=== PATIENT | female | born 1950 | race Asian ===

== ENCOUNTER 2017-02-11 11:55 | Day surgery (SDC) | payer OTHER ==
[~2017-02-11] VITALS: Ht 162.6 cm; Wt 58.2 kg
[2017-02-11 12:57] VITALS: Ht 162.6 cm; Wt 58.2 kg
[2017-02-11] MEDS ORDERED: LORA10TA3 PO (13:07)
[2017-02-11] MEDS ORDERED: ALEN10TA18 PO (13:07)
[2017-02-11] MEDS ORDERED: ALEN70TA30 PO (13:07)
[2017-02-11] MEDS ORDERED: ACYC400T2 PO (13:07)
[2017-02-11] MEDS ORDERED: TR1B60 TOP (13:07)
[2017-02-11] MEDS ORDERED: CLOT15CR55 TOP (13:07)
[2017-02-11 13:09] VITALS: BP 106/56; PULSE 74; RESP 15
[2017-02-11] MEDS ORDERED: PROPOFOL 60 ML ONE (13:24)
[2017-02-11] MEDS ORDERED: LIDOCAINE 2% (SDV) 5 ML INJ ONE (13:25)
--- NOTE | 2017-02-13 07:30 | GILP ---
DATE OF PROCEDURE: 02/11/2017 PROCEDURE: Colonoscopy to cecum. BRIEF HISTORY AND INDICATIONS: This patient is being evaluated for colorectal cancer screening. PREMEDICATION: Monitored anesthesia care by anesthesiologist. SURGEON: Addison Leonard MD INSTRUMENT USED: Olympus colonoscope. PREPARATION: Adequate. TECHNIQUE: After informed consent, with the patient/relatives understanding the procedure, its indic ations potential risks and complications, including but not limited to: allergic reaction, bleeding, perforation, infection, missed lesions and after all pertinent questions were answered to the patie nt's satisfaction, the patient/relatives signed the witnessed informed consent. Following this, premedication was administered slowly IV push by under careful cardiovascular and re spiratory monitoring with pulse oximetry, automatic blood pressure and lunchroom monitor. Once the sedativ e effect was achieved, the patient was placed in the left lateral decubitus position, digital rectal examination was performed. The colonoscope was then introduced and advanced under visual control th roughout all segments of the colon including: the rectum, sigmoid, descending colon, splenic flexure , transverse colon, hepatic flexure, ascending colon and finally reaching the cecum which was clearl y identified by transillumination, finger indentation and the ileocecal valve. Careful examination o f the mucosa of the lower gastrointestinal tract both on insertion as well as withdrawal of the inst rument disclosed the following findings: Rectal Examination: No evidence of perirectal disease, no masses. Colonic Mucosa: The colonic mucosa is essentially unremarkable throughout. The ileocecal valve is c learly identified and appears unremarkable. The instrument was withdrawn. On withdrawal of the instrument, no additional abnormalities were not ed with the exception of moderate sized internal hemorrhoids. The patient tolerated the procedure well and was transferred out of the [facility] awake and in good condition to continue recovery under observation. IMPRESSION: 1. Normal colonic mucosa to cecum. 2. Moderate sized internal hemorrhoids. PLAN: The patient will follow up as an outpatient. Annual Hemoccult stool testing is recommended. Screening colonoscopy in 10 years is recommended. Dictated By: ADDISON LEONARD MS/ALAN Conf#: [id number] DID#: [id number]
== END 2017-02-11 16:00 | disposition home or self-care (01) ==
LOC: GIL 11:55
PROVIDERS: ATTEND Internal Medicine Gastroenterology
DX: Z12.11 Encounter for screening for malignant neoplasm of colon (principal); K64.8 Other hemorrhoids
CPT/HCPCS: 45378; Z7610